=== PATIENT | female | born 1940 | race Caucasian/White ===

== ENCOUNTER 2023-12-25 15:58 | Emergency (ER) | payer MEDICARE, BC, SELFPAY ==
[2023-12-25 15:58] VITALS: BMI 27.2
[2023-12-25 16:01] VITALS: BP 157/83
--- NOTE | 2023-12-25 17:58 | ED.MUSCINJ ---
HPI-Injury
General
Chief Complaint: Fall
Source: patient
Exam Limitations: none
Time Seen by Provider: 12/25/23 17:57
Nursing documentation reviewed up to this point in time: agreed with
History of Present Illness-Injury
Initial Injury comments:
83-year-old female with no clinically significant past medical history states she was in [employer] parking lot today, tripped over cement divider, fell forward injuring her face, right shoulder and left knee. Went to and sent her for 'dislocated
shoulder' and 'shattered knee cap.' Sent here from with left knee immobilizer and right arm sling on.
Pt had no LOC, denies neck or back pain. Able to take few steps to car and into and out of .
States pain in '0' at rest. Has left knee immobilizer on and right arm in sling.
Past History
Past History
ED Past Medical History: Hypercholesterolemia, NIDDM and Other (high platelet count takes Hydroxyurea)
ED Past Surgical History: None
Social History
Tobacco: Non-smoker
Alcohol: None
Personal:
Living: with family
Review of Systems
Review of Systems
Allergies reviewed?: Yes
All Other Systems: ROS reviewed and negative except as documented in HPI and ROS
EENT: Reports other (denies facial pain other than scraped areas, nose is not sore)
Respiratory: Denies trouble breathing
Cardiac: Denies chest pain or syncope
ABD/GI: Denies abdominal pain or nausea
: Denies incontinence
Musculoskeletal: Reports other (pain left knee and right shoulder); Denies neck pain or back pain
Skin: Reports other (scrapes face)
Neurological: Reports no symptoms
Phy Exam
Physical Exam
Physical Exam:
GENERAL: No acute distress. A&Ox3.
CONSTITUTIONAL: Afebrile.
EYES: PERRL, conjunctivae normal
Neck: Supple
ENMT: moist mucus membranes, Pharynx nl, No nasal bone tenderness. Teeth intact, mildly tender, none loose or fractured.
RESPIRATORY: Regular respirations, nonlabored, lungs clear.
CARDIOVASCULAR: Regular rate and rhythm, no murmurs, no rubs.
GI: Soft, nontender, normal BS
MUSCULOSKELETAL: No spinal bony tenderness, right arm in sling, distal n/v intact. Left leg with knee immobilizer, distal n/v intact. Moves with ease. Well perfused.
SKIN: Warm, dry, pink. Deep clean abrasions nose, upper lip, inner upper and lower lips with mild ecchymosis and superficial laceration inner lower lip.
PSYCH: Normal mood and affect. Well kept, interactive and appropriate
NEUROLOGIC: Awake, alert and oriented. No focal neurological deficits
Injury Course
Orders/Labs/Results
Orders:
Orders
12/25/23 18:40
CT Upper Ext W/o Iv Cont Rt Urgent
Comment:
Reason For Exam: fracture/diclocation humeral head
MDM/Problems Addressed
MDM/Problems Addressed:
83-year-old female with no clinically significant past medical history states she was in [employer] parking lot today, tripped over cement divider, fell forward injuring her face, right shoulder and left knee. Went to and sent her for 'dislocated
shoulder' and 'shattered knee cap.' Sent here from with left knee immobilizer and right arm sling on.
Pt had no LOC, denies neck or back pain. Able to take few steps to car and into and out of .
States pain in '0' at rest. Has left knee immobilizer on and right arm in sling.
Xrays from uploaded to [facility]:
Right shoulder: displaced comminuted fracture humeral head
Left knee: Comminuted fracture patella
Pt and request [facility].
Consulted Orthopedic Dr. Redding who requests CT shoulder, f/u in office.
8:[address]. Pt has been OOB and ambulating with help of one person.
She is stable for discharge, she and are comfortable with her going home.
*Critical Care Note
Total Time (30-74mins, 75-104mins- exclusive of procedures): Not Applicable
ED Attending Note
-
Portions of this chart may have been created with voice recognition software.� Occasional wrong word or��sound alike� substitutions may have occurred due to the inherent limitations of voice recognition software.
Discharge Plan
Departure
Patient Disposition: Home (Routine Discharge)
Date of Disposition: 12/25/23
Time of Disposition: :26
Patient with high blood pressure during this ER visit?: No
Condition: Fair
Discharge Problem:
Fall from slip, trip, or stumble, Abrasion of skin of face, Fracture of head of humerus, Closed fracture of left patella
Instructions: Patella Fracture, Skin Abrasions (DC), Using Cold for Pain, Upper Arm Fracture ED
Prescriptions:
New
hydrocodone-acetaminophen 5-300 mg tablet
1 tab PO Q6H PRN (Reason: Pain) Qty: 14 0RF
Referrals:
Jsutyna Burch MD [Family Provider] -
Ancelmo Redding MD [Active] - Call in 1-3 days for appt
Activity Restrictions/Additional Instructions:
As we discussed, keep the sling on and the knee immobilizer on until you see the orthopedic doctor.
You may gently remove them to wash, leaving the right arm close to your body and nonweightbearing on the left leg without the knee immobilizer.
Replace both of them as soon as you are finished washing
Tylenol 650 mg every 6 hours for mild pain and you may use the Vicodin as needed for worse pain
Call the orthopedic doctors office first thing Wednesday morning and make appointment for same or next day.
Interventions
Interventions:
*Risk Screen - Suicide Last Done: 12/25/23 16:01
*General Assessment Last Done: 12/25/23 16:01
*Neglect/Abuse Screening Last Done: 12/25/23 16:01
ED- Fall Risk Assessment Last Done: 12/25/23 18:17
*ED COVID-19 Vaccine History Last Done: 12/25/23 21:08
*Nursing Disposition Last Done: 12/25/23 21:06
ED-Musculoskeletal Assessment Last Done: 12/25/23 18:17
ED- Neurological Assessment Last Done: 12/25/23 18:17
ED-Skin Assessment Last Done: 12/25/23 18:17
Discharge Date and Time
Discharge Date/Time: 12/25/23 20:50
Print Language: TURKISH
[2023-12-25 18:00] VITALS: BP 164/88
[2023-12-25 18:12] VITALS: BP 164/88
[2023-12-25 19:00] VITALS: BP 162/89
== END 2023-12-25 20:50 | disposition home or self-care (01) ==
LOC: EMR 15:58
PROVIDERS: EMERGENCY PHYSICIAN Emergency Medicine; FAMILY PHYSICIAN Internal Medicine Geriatric Medicine
DX: S42.291A Other displaced fracture of upper end of right humerus, initial encounter for closed fracture (principal); S82.042A Displaced comminuted fracture of left patella, initial encounter for closed fracture; S00.81XA Abrasion of other part of head, initial encounter; W18.09XA Striking against other object with subsequent fall, initial encounter; E78.00 Pure hypercholesterolemia, unspecified; E11.9 Type 2 diabetes mellitus without complications
CPT/HCPCS: 99284; 73200